=== PATIENT | female | born 1970 | race Caucasian/White ===

== ENCOUNTER 2017-10-30 10:52 | Outpatient (CLI) | payer OTHER | END 2017-10-30 11:01 | disposition home or self-care (01) | LOC: LAB 10:52 | DX: E04.2 Nontoxic multinodular goiter (principal) ==

== ENCOUNTER 2017-10-30 10:56 | Outpatient (CLI) | payer OTHER | END 2017-10-30 11:02 | disposition home or self-care (01) | LOC: SONOGRAMA 10:56 | DX: E04.2 Nontoxic multinodular goiter (principal); N60.11 Diffuse cystic mastopathy of right breast; N60.12 Diffuse cystic mastopathy of left breast ==

== ENCOUNTER 2021-08-13 10:16 | Outpatient (CLI) | payer OTHER | END 2021-08-13 10:18 | disposition home or self-care (01) | LOC: SONOGRAMA 10:16 | PROVIDERS: ATTEND Pathology Anatomic Pathology & Clinical Pathology | DX: E03.8 Other specified hypothyroidism (principal) ==